=== PATIENT | male | born 1945 | race Two or more races ===

== ENCOUNTER → 2018-12-01 09:50 | Outpatient (CLI) | payer OTHER | END | disposition home or self-care (01) | LOC: LAB 09:50 | DX: R97.20 Elevated prostate specific antigen [PSA] (principal) ==

== ENCOUNTER 2019-01-19 07:28 | Outpatient (CLI) | payer OTHER | END 2019-01-19 11:12 | disposition home or self-care (01) | LOC: SONOGRAMA 07:28 | DX: R97.20 Elevated prostate specific antigen [PSA] (principal) ==

== ENCOUNTER 2019-02-23 07:36 | Outpatient (CLI) | payer OTHER | END 2019-02-23 07:39 | disposition home or self-care (01) | LOC: TOM 07:36 | DX: C61 Malignant neoplasm of prostate (principal) ==

== ENCOUNTER 2019-02-25 07:16 | Outpatient (CLI) | payer OTHER | END 2019-02-25 07:30 | disposition home or self-care (01) | LOC: NUCLEAR 07:16 | DX: C61 Malignant neoplasm of prostate (principal) | CPT/HCPCS: 78306; 78320; A9503 ==